=== PATIENT | female | born 1975 | race Two or more races ===

== ENCOUNTER 2018-07-12 12:47 | Emergency (ER) | payer BC ==
[~2018-07-12] VITALS: Ht 162.6 cm; Wt 90.7 kg
[2018-07-12 13:01] VITALS: BP 130/90
[2018-07-12] MEDS ORDERED: CEPHALEXIN500 MG ORAL (13:05)
[2018-07-12] MEDS ORDERED: Augmentin 875mg Tab ORAL ONE (13:15)
[2018-07-12] MEDS ORDERED: IBUPROFEN600 MG ORAL (13:18)
[2018-07-12] MEDS ORDERED: AUGMENTIN 875-1 EAC1 ORAL (13:18)
[2018-07-12 13:26] VITALS: BP 138/76
--- NOTE | 2018-07-12 15:21 | Emergency Room Report ---
History of Present Illness General Chief Complaint: Skin Rash/Abscess Source: Patient Present Illness HPI The patient is a 42-year-old female presenting for left hand injury and possible infection. She states that she was bit by her own dog 2 days prior on her left hand. She immediately clean the area with water and iodine. She noticed some redness the next thing began taking Keflex which was previously prescribed to her for another infection. She did notice some improvement in redness. He is a 6 out of 10 dull ache and does not radiate from the hand. She denies other symptoms including fever, chills, numbness The patient states that last tetanus shot was within 10 years Allergies: Coded Allergies: No Known Allergies (Unverified , 07/12/18) Patient History Past Medical History: see triage record Pertinent Family History: none Now: No Immunizations: UTD - Per pt, UTD with tetanus Reviewed Nursing Documentation: PMH: Agreed; PSxH: Agreed Nursing Documentation-PMH Past Medical History: No Stated History Review of Systems All Other Systems: negative except mentioned in HPI Physical Exam Vital Signs Date Time Temp Pulse Resp B/P (MAP) Pulse Ox O2 Delivery O2 Flow Rate FiO2 07/12/18 13:01 98.4 79 17 130/90 98 Room Air Sp02 EP Interpretation: reviewed, normal General Appearance: no apparent distress, alert, GCS 15, non-toxic Head: normocephalic, atraumatic Eyes: bilateral eye normal inspection, bilateral eye PERRL Musculoskeletal: normal range of motion - L hand, inflammation - L hand dorsal , swelling - L hand dorsal 1+ non pitting edema Neurologic: alert, oriented x3, responsive, motor strength/tone normal, sensory intact, speech normal Psychiatric: judgement/insight normal, memory normal, mood/affect normal, no suicidal/homicidal ideation Skin: rash - L hand erythema surrounding puncture wound dorsal hand, laceration - <1 cm dorsal hand puncture wound. Healing. Surrounding erythema Lymphatic: no adenopathy Medical Decision Making PA Attestation Dr. Bird is my supervising physician. Patient management was discussed with my supervising physician Diagnostic Impression: Primary Impression: Cellulitis Qualified Codes: L03.114 - Cellulitis of left upper limb Additional Impression: Dog bite Qualified Codes: W54.0XXA - Bitten by dog, initial encounter ER Course The patient is a 42-year-old female presenting for left hand injury and possible infection Ddx considered include but not limited to cellulitis, abscess, tenosynovitis, among others PE: afebrile. NAD L hand: full AROM intact. There is a less than 1 cm puncture wound to the left dorsal surface. No discharge. No bleeding. There is surrounding erythema and mild edema. Feels warm to the touch The patient will discontinue Keflex and will start taking Augmentin. First dose given in the emergency department. She is given strict ER return precautions including if she develops fever, redness worsens, or if she is unable to move fingers/wrist Last Vital Signs Date Time Temp Pulse Resp B/P (MAP) Pulse Ox O2 Delivery O2 Flow Rate FiO2 07/12/18 13:26 98.0 84 18 138/76 99 Room Air Status: improved Disposition: HOME, SELF-CARE Condition: Improved Scripts Ibuprofen* (MOTRIN*) 600 Mg Tablet 600 MG ORAL Q8H PRN for For Pain, #30 TAB 0 Refills Prov: JESSE SAUCEDO 07/12/18 Amoxicillin/Potassium Clav 875-125* (AUGMENTIN 875-125 TABLET*) 1 Each Tablet 1 TAB ORAL TWICE A DAY, #9 TAB Prov: JESSE SAUCEDO 07/12/18 Referrals: NOT CHOSEN [facility]/MD,REFERRING (PCP) Patient Instructions: Cellulitis, Animal Bite Additional Instructions: I discussed my findings with the patient. All questions and concerns have been answered. Treatment and medication compliance have been addressed. I advised the patient that they need to follow up with PMD in 3-5 days. Return to ED if pain remains or worsens, numbness or tingling occurs, new rash is noticed, fever is noticed, you cannot make a fist, or if needed for any reason. Patient verbalized understanding of discharge instructions. JESSE SAUCEDO Jul 12, 2018 15:21
== END 2018-07-12 13:33 | disposition home or self-care (01) ==
LOC: EMR 13:27
DX: L03.114 Cellulitis of left upper limb (principal); S61.412A Laceration without foreign body of left hand, initial encounter; W54.0XXA Bitten by dog, initial encounter; Y92.9 Unspecified place or not applicable
CPT/HCPCS: 99283